=== PATIENT | male | born 1970 | race Caucasian/White ===

== ENCOUNTER 2018-12-03 14:52 | Day surgery (SDC) | payer OTHER ==
[2018-12-03] MEDS ORDERED: NALOXONE HCL 0.4 MG/ML INJ IVP PRN (15:20)
[2018-12-03] MEDS ORDERED: FLUMAZENIL 0.5 MG/5 ML MDV IVP PRN (15:20)
[2018-12-03] MEDS ORDERED: fentaNYL 100 MCG/2 ML INJ IVP PRN (15:20)
[2018-12-03] MEDS ORDERED: MIDAZOLAM 2 MG/2 ML VIAL IVP PRN (15:20)
[2018-12-03] MEDS ORDERED: NS 1,000 ML IV SCH (15:30)
[2018-12-03] MEDS ORDERED: ETHYL ALCOHOL 98% 5 ML AMP MISC ONE ×2 (15:45→18:45)
[2018-12-03] MEDS ORDERED: ONDANSETRON 4 MG/2 ML VIAL ONE (15:55)
[2018-12-03] MEDS ORDERED: fentaNYL 100 MCG/2 ML INJ ONE ×4 (15:55→17:23)
[2018-12-03] MEDS ORDERED: FLUMAZENIL 0.5 MG/5 ML MDV IVP ONE ×2 (15:55→17:56)
[2018-12-03] MEDS ORDERED: NALOXONE HCL 0.4 MG/ML INJ ONE ×2 (15:55→17:56)
[2018-12-03] MEDS ORDERED: MIDAZOLAM 2 MG/2 ML VIAL ONE ×3 (15:56→17:23)
[2018-12-03] MEDS ORDERED: LIDOCAINE 1% 300 MG/30 ML SDV ONE (15:57)
--- NOTE | 2018-12-03 16:17 | PDPROPOC ---
Sedation Plan of Care Sedation Plan of Care: vital signs stable, mental status noted, patient educated of risks, benefits, alternatives, patient can tolerate sedation ASA Classification: ASA 3 Planned drugs: fentanyl, midazolam Mallampati Score: Class 2 Mallampati Reference Image: Patient passed 3-3-2 rule?: Yes
--- NOTE | 2018-12-03 16:17 | PDRADPRE ---
Radiology History & Physical Indication for procedure: cancer (Severe intractable pain from pancreatic cancer ; plan for celiac plexus neurolysis) Home medications: Ativan 1 mg PO PRN PRN 12/03/18 [Last Taken 12/03/18] Creon 12 (*) PO 12/03/18 [Last Taken 12/03/18] Dexamethasone 4 mg PO DAILY 12/03/18 [Last Taken 12/03/18] Oxycodone HCl 10 mg PO Q2H 12/03/18 [Last Taken 12/03/18] Senna PO QID 12/03/18 [Last Taken 12/03/18] Zofran 4 mg PO PRN PRN 12/03/18 [Last Taken 12/03/18] Allergies/Adverse Reactions: No Known Allergies Allergy (Unverified 12/03/18 15:10) Mental status: A&Ox3 Heart exam: regular rate and rhythm Lungs exam: clear to auscultation Mallampati Score: Class 2
[2018-12-03] MEDS ORDERED: IOPAMIDOL (ISOVUE 370) 100 ML BTL IV ONE (16:32)
[2018-12-03] MEDS ORDERED: ACETAMINOPHEN 325 MG TAB PO PRN (17:29)
[2018-12-03] MEDS ORDERED: ONDANSETRON 4 MG/2 ML VIAL IVP PRN (17:29)
[2018-12-03] MEDS ORDERED: oxyCODONE IR 5 MG TAB PO PRN (17:33)
--- NOTE | 2018-12-03 17:35 | PDRADPN ---
Radiology Procedure Note Date of Procedure: 12/03/18 Radiologist: Jeancarlos Honeycutt Anesthesia: IV Sedation Pre-op Diagnosis: Pancreatic CA Post-op Diagnosis: Pancreatic CA Indication: Intractable Pain Procedure: Celiac Plexus Neurolysis Finding(s): Significant progression of tumor with direct extension into the celiac antecrural space. No safe approach from right side, successful left approach posterior ante and retro-crural neurolysis with 20 mL ethanol and 5 mL lidocaine. Inf/Abcess present in the surg proc area at time of surgery?: No
[2018-12-03 21:23] VITALS: BP 130/76
== END 2018-12-03 21:20 | disposition home or self-care (01) ==
LOC: FIMAGING 14:52
PROVIDERS: ATTEND Radiology Vascular & Interventional Radiology
PROC: BW20ZZZ Computerized Tomography (CT Scan) of Abdomen (ICD-10-PCS; principal; 2018-12-03 17:40)
PROC: 3E0T3BZ Introduction of Anesthetic Agent into Peripheral Nerves and Plexi, Percutaneous Approach (ICD-10-PCS; principal; 2018-12-03 17:40)
DX: C25.1 Malignant neoplasm of body of pancreas (principal); G89.3 Neoplasm related pain (acute) (chronic); C78.7 Secondary malignant neoplasm of liver and intrahepatic bile duct; Z80.3 Family history of malignant neoplasm of breast; D64.81 Anemia due to antineoplastic chemotherapy
CPT/HCPCS: J2250; J2310; J2405; J3010; Q9967

== ENCOUNTER → 2018-12-08 | Day surgery (SDC) | payer OTHER ==
[~2018-12-08] MED LIST: ACETAMINOPHEN 325 MG TAB PO PRN; ALTEPLASE 2 MG VIAL IVP PRN; CEFAZOLIN 2 GM/DEXTROSE/100 ML BAG IV ONE; FLUMAZENIL 0.5 MG/5 ML MDV IVP ONE; FLUMAZENIL 0.5 MG/5 ML MDV IVP PRN; GLUCAGON HCL 1 MG VIAL IVP PRN; HEPARIN 10,000 UNIT/10 ML MDV (1,000 UNIT/ML) IVP PRN; LIDOCAINE 1% 300 MG/30 ML SDV ONE; MEPERIDINE 25 MG/ML SYR IVP PRN; MIDAZOLAM 2 MG/2 ML VIAL IVP PRN; MIDAZOLAM 2 MG/2 ML VIAL ONE; NALOXONE HCL 0.4 MG/ML INJ IVP PRN; NALOXONE HCL 0.4 MG/ML INJ ONE; NS 1,000 ML IV SCH; ONDANSETRON 4 MG/2 ML VIAL IVP PRN; PROTAMINE SULFATE 50 MG/5 ML VIAL IVP PRN; ceFAZolin 2 GM/DEXTROSE 100 ML IV ONE; fentaNYL 100 MCG/2 ML INJ IVP PRN; fentaNYL 100 MCG/2 ML INJ ONE
--- NOTE | 2018-12-08 08:32 | PDPROPOC ---
Sedation Plan of Care Sedation Plan of Care: vital signs stable, mental status noted, patient educated of risks, benefits, alternatives, patient can tolerate sedation ASA Classification: ASA 2 Planned drugs: fentanyl, midazolam Mallampati Score: Class 2 Mallampati Reference Image: Patient passed 3-3-2 rule?: Yes
--- NOTE | 2018-12-08 08:33 | PDRADPRE ---
Radiology History & Physical Indication for procedure: cancer (Pancreatic CA - Chest port for chemotherapy) Home medications: Ativan 1 mg PO PRN PRN 12/03/18 [Last Taken 12/07/18] Creon 12 (*) PO TIDMEAL 12/03/18 [Last Taken 12/07/18] Dexamethasone 4 mg PO DAILY 12/03/18 [Last Taken 12/08/18] Oxycodone HCl 5 mg PO PRN PRN 12/03/18 [Last Taken 12/08/18] Senna PO BID 12/03/18 [Last Taken 12/07/18] Zofran 4 mg PO PRN PRN 12/03/18 [Last Taken 12/05/18] MIRTAZAPINE 15 mg PO DAILY 12/07/18 [Last Taken 12/07/18] Ms Contin 12/08/18 [Last Taken 12/08/18] Allergies/Adverse Reactions: No Known Allergies Allergy (Unverified 12/03/18 15:10) Mental status: A&Ox3 Heart exam: regular rate and rhythm Lungs exam: clear to auscultation Mallampati Score: Class 2
[2018-12-08 08:51] LABS: INR 1.09 (0.83-1.16); PROTIME(PATIENT) 13.7 SEC (12.0-15.0)
--- NOTE | 2018-12-08 10:01 | PDRADPN ---
Radiology Procedure Note Date of Procedure: 12/08/18 Radiologist: Jeancarlos Honeycutt Anesthesia: IV Sedation Pre-op Diagnosis: Pancreatic CA Post-op Diagnosis: Pancreatic CA Indication: Pancreatic CA - IV chemo Procedure: Chest port Finding(s): Tip of catheter at atriocaval junction . 8Fr power port placed without complication. Inf/Abcess present in the surg proc area at time of surgery?: No EBL: Minimal
[2018-12-08 10:46] VITALS: BP 119/76
== END | disposition home or self-care (01) ==
LOC: FIMAGING 07:42
PROVIDERS: ATTEND Radiology Vascular & Interventional Radiology
PROC: B5131ZA Fluoroscopy of Right Jugular Veins using Low Osmolar Contrast, Guidance (ICD-10-PCS; principal; 2018-12-08 10:10)
PROC: 02HV33Z Insertion of Infusion Device into Superior Vena Cava, Percutaneous Approach (ICD-10-PCS; principal; 2018-12-08 10:10)
PROC: 0JH60XZ Insertion of Tunneled Vascular Access Device into Chest Subcutaneous Tissue and Fascia, Open Approach (ICD-10-PCS; principal; 2018-12-08 10:10)
PROC: B543ZZA Ultrasonography of Right Jugular Veins, Guidance (ICD-10-PCS; principal; 2018-12-08 10:10)
DX: C25.1 Malignant neoplasm of body of pancreas (principal); K76.89 Other specified diseases of liver
CPT/HCPCS: J0690; J1642; J2250; J2310; J3010

== ENCOUNTER 2019-01-06 10:33 | Observation (INO) | payer OTHER ==
[2019-01-06] MEDS ORDERED: ONDANSETRON DISINTEGRATING 4 MG TAB PO PRN (11:22)
[2019-01-06] MEDS ORDERED: ACETAMINOPHEN 325 MG TAB PO PRN (11:22)
[2019-01-06] MEDS ORDERED: ONDANSETRON 4 MG/2 ML VIAL IVP PRN (11:22)
[2019-01-06] MEDS ORDERED: LORazepam 2 MG/ML INJ IVP PRN (11:22)
--- NOTE | 2019-01-06 11:24 | PDGENHP ---
History and Physical - Chief Complaint here for hospice - History of Present Illness 48yo M with pancreatic cancer now wanting hospice care. He is being directly admitted from his oncologist's office. He is here with his , who provides most of the history. , Sapna, reports 2 falls at home over the last two nights. He has been very weak. He met with Dr Moncada today. No further plans for chemotherapy. Patient wants hospice but felt unsafe to return home at present. His pain is currently controlled. No nausea. Otherwise no complaints. Of note, he has been followed by [facility] palliative care. He was briefly on hospice earlier this year before trying chemotherapy one last time. His last chemotherapy was 12/24. History Information - Allergies/Home Medication List Allergies/Adverse Reactions: No Known Allergies Allergy (Unverified 12/03/18 15:10) Home Medications: Ativan 1 mg PO PRN PRN 12/03/18 [Last Taken 12/07/18] Creon 12 (*) PO TIDMEAL 12/03/18 [Last Taken 12/07/18] Dexamethasone 4 mg PO DAILY 12/03/18 [Last Taken 12/08/18] Oxycodone HCl 5 mg PO PRN PRN 12/03/18 [Last Taken 12/08/18] Senna PO BID 12/03/18 [Last Taken 12/07/18] Zofran 4 mg PO PRN PRN 12/03/18 [Last Taken 12/05/18] MIRTAZAPINE 15 mg PO DAILY 12/07/18 [Last Taken 12/07/18] Ms Contin 12/08/18 [Last Taken 12/08/18] I have personally reviewed and updated: family history, medical history, social history, surgical history - Past Medical History Additional medical history: pancreatic cancer (diagnosed 2016, has been on several chemotherapy regimens and XRT) - Surgical History Reports: no pertinent surgical hx - Family History Positive for: non-pertinent - Social History Smoking Status: Never smoked Alcohol Use: None Drug Use: None Additional social history: Lives with , who is at bedside. Review of Systems Review of Systems: ROS: 10pt was reviewed & negative except for what was stated in HPI & below Physical Exam Physical Exam: Temp Pulse Resp BP Pulse Ox 36.4 C 97 20 109/73 82 L 01/06/19 11:07 01/06/19 11:07 01/06/19 11:07 01/06/19 11:07 01/06/19 11:07 Constitutional: no apparent distress, cachectic Eyes: PERRL, anicteric sclera Ears, Nose, Mouth, Throat: dry mucous membranes Cardiovascular: regular rate and rhythym, no murmur, rub, or gallop, No edema Respiratory: no respiratory distress, no rales or rhonchi, clear to auscultation Gastrointestinal: normoactive bowel sounds, soft, non-tender abdomen, no palpable masses, distension Genitourinary: no bladder fullness, no bladder tenderness Skin: warm, normal color, no rashes or abrasions, no fluctuance, no induration, No mottled Musculoskeletal: generalized weakness Neurologic: AAOx3 Psychiatric: interacting appropriately Assessment & Plan Assessment: 48yo M with pancreatic cancer who is transitioning to hospice care. He is being admitted to facilitate this and ensure safety at home. Plan: #Pancreatic cancer: Hospice order placed. Have d/w case management - will contact [facility] (previously followed by Sukh[facility] Mcfadd[facility]). #Cancer pain: Continue home MS contin 30mg BID, oxycodone PRN and morphine IV PRN for breakthrough. #Constipation: Bowel regimen including fleet enema PRN (he uses this at home). #Leukocytosis: Suspect d/t cancer. No s/s of infection. #Thrombocytopenia: Chronic. #Hyponatremia: D/t poor PO. Giving IV fluids per patient's request. #ERIC: Cr 1.5, up from 1.0. Getting fluids as above. #Transaminitis: D/t cancer. Code: DNR/DNI Diet: regular Dispo: Admit under observation
[2019-01-06] MEDS ORDERED: NS 1,000 ML IV SCH (11:45)
[2019-01-06] MEDS ORDERED: LACTULOSE 20 GM/30 ML UDCUP PO PRN (11:51)
[2019-01-06] MEDS ORDERED: BISACODYL 10 MG SUPP PR PRN (11:51)
[2019-01-06] MEDS ORDERED: MAGNESIUM HYDROXIDE 30 ML UDCUP PO PRN (11:51)
[2019-01-06] MEDS ORDERED: POLYETHYLENE GLYCOL 3350 17 GM PKT PO PRN (11:51)
[2019-01-06] MEDS ORDERED: LIPASE 12,000/AMYLASE/PROTEASE (CREON) 1 CAP PO PRN (14:43)
[2019-01-06] MEDS ORDERED: LORazepam 1 MG TAB PO PRN (14:43)
[2019-01-06] MEDS: oxyCODONE IR 5 MG TAB PO PRN ×2 (15:41→18:46)
[2019-01-06] MEDS: LIPASE 12,000/AMYLASE/PROTEASE (CREON) 1 CAP PO SCH ×2 (18:23→18:50)
--- NOTE | 2019-01-06 19:45 | GCON ---
[f rep st] CONSULTATION ONCOLOGY CONSULTATION DATE OF CONSULTATION: 01/06/2019 REASON FOR CONSULTATION: Patient with metastatic pancreatic cancer, being admitted to transition to hospice. HISTORY OF PRESENT ILLNESS: Jimmy Jeong is a very unfortunate 48-year-old male diagnosed with pancr eatic cancer in June of 2016. He was found to be a BRCA carrier. Biopsy confirmed poorly differe ntiated adenocarcinoma. He was initially treated with Fergus Abraxane, and then changed to cisplatin an d Gemzar one the BRCA mutation was identified. He underwent a Y90 procedure to the liver in July of 2017, and he had the pancreatic tumor treated with merritt knife as well. He was started on Rucapar ib around August of 2018, and in the spring, underwent a course of SBRT to the pancreatic b ed. In May of 2018, he had evidence of progressive disease with new lesions in the liver and s pleen. He was on a trial with Alisertib and a Torc inhibitor. His scan in October of this year addison wed progressive disease. More recently, he received 2 cycles of chemotherapy with FOLFOX, but tolerated that extremely poorly. He was seen in the office today, and due to his declining performance status, was admitted directly for hospice. He has been receiving palliative care with [facility]. His is concerned about his safety at home as he has fallen several times in the last week. Currently, he feels comfortable, and his pain is well co ntrolled. 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 FAMILY HISTORY: Mother had breast cancer in her 30s. SOCIAL HISTORY: He does not smoke cigarettes. He is . He has 2 children. 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 REVIEW OF SYSTEMS: Constitutional notable for no fever. No pain. 10-point review of systems is oth erwise negative other than HPI. PHYSICAL EXAM: GENERAL: He is a very chronically ill, frail, pale male lying comfortably in bed. V ITAL SIGNS: Stable. He is afebrile. Of note, O2 saturation on room air is 82%. Physical exam is g enerally limited as patient requested this. ABDOMEN: Soft and nontender. LABORATORY DATA: White blood cell count 17.9, hematocrit 45, platelets 101. Creatinine 1.5, glucose 189, AST 119, ALT 111, bilirubin 0.9. IMPRESSION: This is a 48-year-old male admitted for transition to hospice with a several year histor y of metastatic pancreatic cancer. He is unsafe to return home, and both he and his are in agre ement with that. During this admission, determination will need to be made as to whether or not he d oes inpatient hospice or hospice support at a long term facility. Will continue to follow cintia tidwell with you. /[id number]/MODL
[2019-01-06] MEDS: SENNOSIDES/DOCUSATE SODIUM TAB PO SCH (20:32)
[2019-01-06] MEDS: morphINE SR 30 MG TAB PO SCH (20:32)
[2019-01-07] MEDS: oxyCODONE IR 5 MG TAB PO PRN ×3 (04:50→13:06)
[2019-01-07 07:42] VITALS: BP 105/69
[2019-01-07] MEDS ORDERED: DEXAMETHASONE 4 MG TAB PO SCH (09:00)
[2019-01-07] MEDS ORDERED: MIRTAZAPINE 30 MG TAB PO SCH ×2 (09:00→21:00)
[2019-01-07] MEDS: LIPASE 12,000/AMYLASE/PROTEASE (CREON) 1 CAP PO SCH ×2 (10:29→14:10)
[2019-01-07] MEDS: morphINE SR 30 MG TAB PO SCH (10:29)
[2019-01-07] MEDS: SENNOSIDES/DOCUSATE SODIUM TAB PO SCH (10:30)
[2019-01-07] MEDS ORDERED: NS 1,000 ML IV SCH (10:45)
--- NOTE | 2019-01-07 11:02 | PDDCSUM ---
Discharge Summary Discharge Summary: Dates of service 01/06-01/07/19 Consultations: oncology, hospice Procedures: none Hospital course by problem: 48yo M with pancreatic cancer who is transitioning to hospice care. He is being admitted to facilitate this and ensure safety at home. Plan: #Pancreatic cancer: Hospice order placed. Have d/w case management - will contact [facility] (previously followed by Sukh[facility]fadd[facility]). #Cancer pain: Continue home MS contin 30mg BID, oxycodone PRN and morphine IV PRN for breakthrough. #Constipation: Bowel regimen including fleet enema PRN (he uses this at home). #Leukocytosis: Suspect d/t cancer. No s/s of infection. #Thrombocytopenia: Chronic. #Hyponatremia: D/t poor PO. Giving IV fluids per patient's request. #ERIC: Cr 1.5, up from 1.0. Getting fluids as above. #Transaminitis: D/t cancer. Code: DNR/DNI Dispo: discharged to hospice F/u with hospice doctor > 35 min spent in dc more than half in coordination of care
--- NOTE | 2019-01-07 11:02 | PDIAF ---
- Diagnosis Code Status: Do Not Resuscitate - Medication Management Discharge Medications: electronically signed and located in the Home Medication List. - Orders Services needed: Registered Nurse, Certified Silvering Applicator Diet Recommendation: no restrictions on diet - Follow Up Care Current Providers and Referrals: Patient,NotPresent [Primary Care Provider] -
--- NOTE | 2019-01-07 11:50 | ASMTLACE ---
LACE Length of stay for Answers: Less than 1 day current admission Acuity / Level of Answers: No Care: Did the patient have an inpatient admission? Comorbidities - select Answers: Any tumor (including all that apply lymphoma or leukemia) Opioid dependence / Chronic pain Other Notes: HLD # of Emergency department Answers: 0 visits in the last 6 months Score: 7 Date Signed: 01/07/2019 11:50 AM Electronically Signed By:AKHIL Tyler
--- NOTE | 2019-01-07 11:58 | ASDISCHSUM ---
Discharge Information Plan Status:Hospice-Inpatient Medically Cleared to Leave:01/07/2019 Discharge Date:01/07/2019 CM D/C Disposition:Hospice Facility ADT D/C Disposition:Hospice Facility Projected Discharge Date:01/07/2019 11:00 AM Transportation at D/C: Discharge Delay Reason: Follow-Up Date:01/07/2019 11:00 AM Discharge Slot: Final Diagnosis: Placement Information Referral Type:*Hospice Referral ID:[id number] Provider Name:[facility] Address 1:[address] [place] Address 2: City:[place] Selection Factors: State:[place] Patient Contact Information Contact Name:VALERIANO Relationship: Address:[address] Work Phone: [facility]:[place] Alternate Phone: State/Zip Code:[place] [address] Email: Financial Information Financial Class:HMO and PPO Plans Primary Plan Desc:[employer] Primary Plan Number:[id number] Secondary Plan Desc: Secondary Plan Number: Assessment Information LACE LACE Length of stay for Answers: Less than 1 day current admission Acuity / Level of Answers: No Care: Did the patient have an inpatient admission? Comorbidities - select Answers: Any tumor (including all that apply lymphoma or leukemia) Opioid dependence / Chronic pain Other Notes: HLD # of Emergency department Answers: 0 visits in the last 6 months Score: 7 Date Signed: 01/07/2019 11:50 AM Electronically Signed By:AKHIL Tyler Intervention Information
--- NOTE | 2019-01-07 13:29 | ASMTDCNOTE ---
Case Management Discharge Discharge Order Complete? Answers: Yes Patient to Obtain Answers: Other Notes: [facility] Medications Transportation Arranged Answers: Other Notes: [facility] stretcher Transport will Pick (Date 01/07/2019 01:00 PM & Time) Case Management Transport Answers: Yes Form Complete Faxed Final Orders Answers: Yes Discharge Comments Notes: Pt was admitted after several falls at home. He is very weak. Last chemo 12/24/18. He has been followed by [facility] and assessed and accepted by [facility]. Transportation arranged by [facility] RN. [facility] to work with family on safe transition back to home with hospice and possibly additional caregiver suppport, or to a SNF with hospice. Date Signed: 01/07/2019 01:28 PM Electronically Signed By:AKHIL Tyler
== END 2019-01-07 13:23 | disposition hospice, home (50) ==
LOC: F1N 11:03
PROVIDERS: ADMIT Internal Medicine; ATTEND Internal Medicine
DX: C25.9 Malignant neoplasm of pancreas, unspecified (principal); C78.7 Secondary malignant neoplasm of liver and intrahepatic bile duct; C78.6 Secondary malignant neoplasm of retroperitoneum and peritoneum; G89.3 Neoplasm related pain (acute) (chronic); K59.00 Constipation, unspecified; D72.829 Elevated white blood cell count, unspecified; D69.59 Other secondary thrombocytopenia; E87.1 Hypo-osmolality and hyponatremia; N17.9 Acute kidney failure, unspecified; R74.0 Nonspecific elevation of levels of transaminase and lactic acid dehydrogenase [LDH]; Z66 Do not resuscitate; Z15.09 Genetic susceptibility to other malignant neoplasm; Z80.3 Family history of malignant neoplasm of breast
CPT/HCPCS: G0378 ×2; J2060; J2270; J2405